=== PATIENT | male | born 1950 | race Caucasian/White ===

== ENCOUNTER 2023-04-02 08:18 | Day surgery (SDC) | payer OTHER, BC ==
[2023-03-23 10:44] VITALS: BMI 27.0
[2023-04-02] MEDS ORDERED: ONDANSETRON 4 MG/2 ML VIAL IVPUSH PRN (08:26)
[2023-04-02] MEDS ORDERED: oxyCODONE HCL 5 MG TABLET PO PRN (08:26)
[2023-04-02] MEDS ORDERED: PROMETHAZINE HCL 25 MG/1 ML VIAL IVPB PRN (08:26)
[2023-04-02] MEDS ORDERED: LACTATED RINGERS SOLUTION 1,000 ML IV SCH (08:30)
[2023-04-02] MEDS ORDERED: BUPIVACAINE HCL/PF 2.5 MG/ML - 30 ML VIAL IJ ONE (10:04)
[2023-04-02] MEDS ORDERED: PROPOFOL 20 ML ONE (10:07)
[2023-04-02] MEDS ORDERED: SODIUM CHLORIDE 0.9% P/F 10 ML VIAL IJ ONE (10:07)
[2023-04-02] MEDS ORDERED: LIDOCAINE HCL/PF 2% SDV 5ML VIAL ONE (10:07)
[2023-04-02] MEDS ORDERED: ceFAZolin SODIUM 1 GM VIAL ONE (10:07)
[2023-04-02] MEDS ORDERED: KETOROLAC TROMETHAMINE 30 MG/1 ML VIAL ONE (11:00)
[2023-04-02] MEDS ORDERED: ONDANSETRON 4 MG/2 ML VIAL ONE (11:00)
[2023-04-02] MEDS ORDERED: DEXAMETHASONE SOD PHOSPHATE 4 MG/1 ML VIAL ONE (11:00)
[2023-04-02] MEDS ORDERED: ACETAMINOPHEN INJECTION 100 ML IVPB ONE (11:31)
[2023-04-02 12:42] VITALS: RESP 16
[2023-04-02 13:04] VITALS: TEMP 97.9
[2023-04-02 13:24] VITALS: BP 118/73; PULSE 57
== END 2023-04-02 13:26 | disposition home or self-care (01) ==
LOC: FASU 08:18
PROVIDERS: ATTEND Orthopaedic Surgery
PROC: 0SBD4ZZ Excision of Left Knee Joint, Percutaneous Endoscopic Approach (ICD-10-PCS; 2023-04-02)
PROC: 0SBD4ZZ Excision of Left Knee Joint, Percutaneous Endoscopic Approach (ICD-10-PCS; principal; 2023-04-02 11:14)
DX: S83.242A Other tear of medial meniscus, current injury, left knee, initial encounter (principal); S83.282A Other tear of lateral meniscus, current injury, left knee, initial encounter; S83.8X2A Sprain of other specified parts of left knee, initial encounter; M65.862 Other synovitis and tenosynovitis, left lower leg; X58.XXXA Exposure to other specified factors, initial encounter; Y93.9 Activity, unspecified; Y92.9 Unspecified place or not applicable
CPT/HCPCS: 94760